=== PATIENT | male | born 1970 | race Caucasian/White ===

== ENCOUNTER 2025-10-13 10:25 | Day surgery (SDC) | payer BC ==
[2025-10-12 13:24] VITALS: BMI 27.6
[2025-10-13] MEDS ORDERED: Lidocaine 1% PF 5 ML VIAL ONE (12:03)
[2025-10-13] MEDS ORDERED: PROPOFOL 40 ML ONE (12:03)
[2025-10-13] MEDS ORDERED: Rocuronium Bromide 10 MG/ML (10ML VIAL) ONE (12:03)
[2025-10-13] MEDS ORDERED: Ondansetron PF 4 MG/2 ML Vial ONE (12:03)
[2025-10-13] MEDS ORDERED: SUGAMMADEX SODIUM 200 MG/2 ML VIAL ONE ×2 (12:03→12:49)
[2025-10-13] MEDS ORDERED: Albuterol HFA (OR) 200 PUFF INH ONE (12:49)
== END 2025-10-13 14:30 | disposition home or self-care (01) ==
LOC: CSHSDC 10:25
PROVIDERS: ATTEND Specialist
PROC: 0CBM8ZX Excision of Pharynx, Via Natural or Artificial Opening Endoscopic, Diagnostic (ICD-10-PCS; principal; 2025-10-13)
DX: K14.8 Other diseases of tongue (principal)
CPT/HCPCS: 88173; 88305; 88342; 93005; 93010; J0169; J1100; J2405; J2704; J3010